=== PATIENT | female | born 1940 | race Caucasian/White ===

== ENCOUNTER 2024-08-18 21:19 | Inpatient (IN) | payer OTHER ==
[2024-08-18 23:10] LABS: BASO % 0.2 % (0-2.0); HEMOGLOBIN 15.5 GM/dL (10.7-15.3); LYMPH % 4.3 % (8-40); MCH 30.7 pg (25.7-33.7); MCHC 33.7 g/dl (32.0-36.0); MEAN PLT VOLUME 7.7 fl (7.5-11.1); MONO % 13.9 % (3.8-10.2); NEUT % 81.6 % (42.8-82.8); PLATELET COUNT 161 10^3/uL (134-434); RBC 5.05 M/mm3 (3.60-5.2); RDW 15.3 % (11.6-15.6); WHITE BLOOD COUNT 17.1 K/mm3 (4.0-10.0)
[2024-08-18 23:27] LABS: CHLORIDE 97 mmol/L (98-107)
[2024-08-18 23:28] LABS: SODIUM 132 mmol/L (136-145)
[2024-08-18 23:30] LABS: ALBUMIN 2.7 g/dl (3.4-5.0); BLOOD UREA NITROGEN 37.7 mg/dL (7-18); CALCIUM 9.7 mg/dL (8.5-10.1); CO2 30 mmol/L (21-32); GLUCOSE,RANDOM 101 mg/dL (74-106)
[2024-08-18 23:33] LABS: CREATININE 1.1 mg/dL (0.55-1.3)
[2024-08-18 23:35] LABS: TOT PROT 7.6 g/dl (6.4-8.2)
[2024-08-18 23:36] LABS: ALK PHOS 77 U/L (45-117)
[2024-08-18 23:49] LABS: ANION GAP 5 mmol/L (4-13); LACTIC ACID 4.2 mmol/L (0.4-2.0); POTASSIUM 9.6 mmol/L (3.5-5.1); SGOT/AST 132 U/L (15-37); SGPT/ALT 22 U/L (13-61)
[2024-08-18 23:59] LABS: BILIRUBIN,TOTAL < 0.1 mg/dL (0.2-1)
[2024-08-19] MEDS ORDERED: PIPERACILLIN/TAZOB 3.375 GM 3.375 GM/50 ML BAG IVPB ONE (00:34)
[2024-08-19] MEDS ORDERED: ACETAMINOPHEN INJECTION 100 ML ONE (00:39)
[2024-08-19] MEDS: SODIUM CHLORIDE 0.9% 500 ML INFUS.BAG IV ONE (00:43)
[2024-08-19] MEDS: ACETAMINOPHEN 1000 MG/100 ML BAG IVPB ONE (00:43)
[2024-08-19 00:44] LABS: EPI CELLS 4 /uL (0-25.1); HYALINE CASTS 0 /uL (0-3.1); URINE APPEARANCE CLOUDY; URINE BACTERIA 3990 /uL (0-1359); URINE BILIRUBIN NEGATIVE (NEGATIVE); URINE COLOR YELLOW; URINE GLUCOSE (UA) NEGATIVE (NEGATIVE); URINE KETONE NEGATIVE (NEGATIVE); URINE LEUK ESTERASE TRACE (NEGATIVE); URINE NITRITE NEGATIVE (NEGATIVE); URINE PROTEIN NEGATIVE (NEGATIVE); URINE RBC 2 /uL (0-23.9); URINE WBC 37 /uL (0-25.8)
[2024-08-19] MEDS: PIPERACILLIN/TAZOB 3.375 GM 3.375 GM in DEXTROSE 5%-WATER - 50 ML IVPB ONE (00:45)
[2024-08-19] MEDS ORDERED: VANCOMYCIN/WATER 1250 MG 1,250 MG/250 ML BAG IVPB ONE (01:57)
[2024-08-19] MEDS: VANCOMYCIN/WATER 1250 MG 1,250 MG/250 ML BAG IVPB ONE (01:58)
[2024-08-19] MEDS: LACTATED RINGERS SOLUTION 1000 ML INFUS.BAG IV ONE (02:31)
[2024-08-19 03:24] LABS: INR 1.2 (0.83-1.09); PROTHROMBIN TIME (PATIENT) 13.2 SEC (9.7-13.0)
[2024-08-19 03:27] LABS: ACTIVATED PTT 27.8 SECONDS (25.2-36.5)
[2024-08-19 03:29] LABS: POTASSIUM 3.6 mmol/L (3.5-5.1)
[2024-08-19 03:32] LABS: BLOOD UREA NITROGEN 36.6 mg/dL (7-18); CALCIUM 8.5 mg/dL (8.5-10.1)
[2024-08-19 03:33] LABS: ALBUMIN 2.1 g/dl (3.4-5.0)
[2024-08-19 03:35] LABS: CREATININE 0.9 mg/dL (0.55-1.3)
[2024-08-19 03:37] LABS: BILIRUBIN,TOTAL 0.5 mg/dL (0.2-1)
[2024-08-19 03:47] LABS: LACTIC ACID 3.2 mmol/L (0.4-2.0); TOT PROT 4.6 g/dl (6.4-8.2)
[2024-08-19 06:28] LABS: LACTIC ACID 2.6 mmol/L (0.4-2.0)
[2024-08-19] MEDS ORDERED: DOCUSATE SODIUM 100 MG CAPSULE (FP) PO PRN (07:54)
[2024-08-19 09:34] LABS: LACTIC ACID 2.7 mmol/L (0.4-2.0)
[2024-08-19 10:39] LABS: HEMOGLOBIN 14.5 GM/dL (10.7-15.3); MCH 30.2 pg (25.7-33.7); MEAN CELL VOLUME 91.4 fl (80-96); MEAN PLT VOLUME 7.8 fl (7.5-11.1); PLATELET COUNT 139 10^3/uL (134-434); RBC 4.81 M/mm3 (3.60-5.2); RDW 15.1 % (11.6-15.6); WHITE BLOOD COUNT 23.8 K/mm3 (4.0-10.0)
[2024-08-19] MEDS: D5-NS + 20 MEQ KCL - 20 MEQ/1,000 ML INFUS.BAG IV SCH (10:50)
[2024-08-19] MEDS: PIPERACILLIN/TAZOB 3.375 GM 50 ML IVPB SCH ×2 (10:50→18:06)
[2024-08-19 10:55] LABS: POTASSIUM 3.3 mmol/L (3.5-5.1)
[2024-08-19 10:58] LABS: BLOOD UREA NITROGEN 32.6 mg/dL (7-18); CALCIUM 8.8 mg/dL (8.5-10.1)
[2024-08-19] MEDS ORDERED: HEPARIN NA (PORCINE) 5,000 UNITS/ML 1ML VIAL IVPUSH PRN ×2 (11:50)
[2024-08-19 12:16] LABS: ANISOCYTOSIS 0; HELMET CELLS 0; HOWELL-JOLLY BODIES 0; MACROCYTOSIS 0; OVALOCYTE 0; ROULEAU 0; SICKELED CELLS 0; TARGET CELLS 0; TEAR DROP CELLS 0; TOXIC GRANULATION 0
[2024-08-19 13:00] LABS: LACTIC ACID 2.6 mmol/L (0.4-2.0)
[2024-08-19 13:18] LABS: INR 1.21 (0.83-1.09); PROTHROMBIN TIME (PATIENT) 13.3 SEC (9.7-13.0)
[2024-08-19 13:21] LABS: ACTIVATED PTT 30.1 SECONDS (25.2-36.5)
[2024-08-19] MEDS: HEPARIN NA (PORCINE) 5,000 UNITS/ML 1ML VIAL IVPUSH ONE (14:26)
[2024-08-19] MEDS: HEPARIN SOD,PORK IN 0.45% NACL 25,000 UNIT/500 ML INFUS.BAG IVPB SCH (14:26)
[2024-08-19] MEDS: POTASSIUM CHLORIDE ORAL LIQUID 20 MEQ/15 ML PO ONE (14:40)
[2024-08-19] MEDS: VANCOMYCIN/WATER FOR INJ (PEG) 750 MG/150 ML BAG IVPB SCH ×2 (14:40→15:26)
[2024-08-19] MEDS: PIPERACILLIN/TAZOB 3.375 GM 3.375 GM in DEXTROSE 5%-WATER - 50 ML IVPB SCH (15:25)
[2024-08-19 17:17] LABS: LACTIC ACID 2.1 mmol/L (0.4-2.0)
[2024-08-20 09:41] LABS: BASO % 0.1 % (0-2.0); EOS % 0.1 % (0-4.5); HEMATOCRIT 34.8 % (32.4-45.2); HEMOGLOBIN 11.5 GM/dL (10.7-15.3); LYMPH % 5.1 % (8-40); MCH 30.5 pg (25.7-33.7); MCHC 33.2 g/dl (32.0-36.0); MEAN CELL VOLUME 92.1 fl (80-96); MEAN PLT VOLUME 7.6 fl (7.5-11.1); MONO % 16.1 % (3.8-10.2); NEUT % 78.6 % (42.8-82.8); PLATELET COUNT 110 10^3/uL (134-434); RBC 3.78 M/mm3 (3.60-5.2); RDW 14.9 % (11.6-15.6); WHITE BLOOD COUNT 17.7 K/mm3 (4.0-10.0)
[2024-08-20 09:44] LABS: INR 1.18 (0.83-1.09)
[2024-08-20 09:46] LABS: ACTIVATED PTT 66.3 SECONDS (25.2-36.5)
[2024-08-20 09:53] LABS: POTASSIUM 3.5 mmol/L (3.5-5.1)
[2024-08-20 09:59] LABS: CALCIUM 8.4 mg/dL (8.5-10.1)
[2024-08-20 10:00] LABS: BLOOD UREA NITROGEN 28.8 mg/dL (7-18)
[2024-08-20 10:03] LABS: CREATININE 0.7 mg/dL (0.55-1.3)
[2024-08-20 10:04] LABS: BILIRUBIN,TOTAL 0.4 mg/dL (0.2-1); TOT PROT 4.6 g/dl (6.4-8.2)
[2024-08-21 10:24] LABS: HEMATOCRIT 34.7 % (32.4-45.2); HEMOGLOBIN 11.3 GM/dL (10.7-15.3); MCH 30.2 pg (25.7-33.7); MCHC 32.6 g/dl (32.0-36.0); MEAN CELL VOLUME 92.6 fl (80-96); MEAN PLT VOLUME 7.4 fl (7.5-11.1); PLATELET COUNT 121 10^3/uL (134-434); RBC 3.75 M/mm3 (3.60-5.2); RDW 15.5 % (11.6-15.6); WHITE BLOOD COUNT 11.8 K/mm3 (4.0-10.0)
[2024-08-21] MEDS: VANCOMYCIN HCL 125 MG CAPSULE (RESTRICTED TO ID ONLY) PO SCH (12:24)
[2024-08-21] MEDS: BANATROL PLUS POWDER PACKET PO SCH (14:02)
[2024-08-21 14:51] VITALS: BMI 16.3
[2024-08-21] MEDS: VANCOMYCIN ORAL SOLUTION 125 MG/2.5 ML PO SCH (17:15)
[2024-08-22] MEDS: PANTOPRAZOLE SODIUM 40 MG VIAL IVPUSH SCH (09:18)
[2024-08-22 10:37] LABS: HEMATOCRIT 33.5 % (32.4-45.2); HEMOGLOBIN 11.5 GM/dL (10.7-15.3); MCHC 34.2 g/dl (32.0-36.0); MEAN CELL VOLUME 90.5 fl (80-96); PLATELET COUNT 137 10^3/uL (134-434); RDW 15.4 % (11.6-15.6); WHITE BLOOD COUNT 8.5 K/mm3 (4.0-10.0)
[2024-08-22 10:54] LABS: POTASSIUM 3.1 mmol/L (3.5-5.1)
[2024-08-22 11:00] LABS: CALCIUM 8.4 mg/dL (8.5-10.1)
[2024-08-22 11:01] LABS: BLOOD UREA NITROGEN 10.8 mg/dL (7-18)
[2024-08-22 11:03] LABS: CREATININE 0.5 mg/dL (0.55-1.3)
[2024-08-22] MEDS: POLYETHYLENE GLYCOL (HEALTHYLAX) 3350 17 GM PACKET PO SCH (13:58)
[2024-08-22 16:17] LABS: BASO % 0.3 % (0-2.0); EOS % 1.6 % (0-4.5); HEMOGLOBIN 11.1 GM/dL (10.7-15.3); LYMPH % 13.4 % (8-40); MCH 30.6 pg (25.7-33.7); MCHC 33.6 g/dl (32.0-36.0); MEAN PLT VOLUME 6.8 fl (7.5-11.1); NEUT % 65.7 % (42.8-82.8); PLATELET COUNT 141 10^3/uL (134-434); RBC 3.62 M/mm3 (3.60-5.2); RDW 15.3 % (11.6-15.6); WHITE BLOOD COUNT 8.9 K/mm3 (4.0-10.0)
[2024-08-23 10:07] LABS: HEMATOCRIT 30.3 % (32.4-45.2); HEMOGLOBIN 10.3 GM/dL (10.7-15.3); MCH 30.9 pg (25.7-33.7); MCHC 33.9 g/dl (32.0-36.0); MEAN CELL VOLUME 91.2 fl (80-96); MEAN PLT VOLUME 6.6 fl (7.5-11.1); PLATELET COUNT 138 10^3/uL (134-434); RBC 3.32 M/mm3 (3.60-5.2); WHITE BLOOD COUNT 9.2 K/mm3 (4.0-10.0)
[2024-08-23 10:18] LABS: CHLORIDE 109 mmol/L (98-107); SODIUM 144 mmol/L (136-145)
[2024-08-23 10:21] LABS: POTASSIUM 2.9 mmol/L (3.5-5.1)
[2024-08-23 10:22] LABS: CALCIUM 8.2 mg/dL (8.5-10.1); GLUCOSE,RANDOM 84 mg/dL (74-106)
[2024-08-23 10:24] LABS: ANION GAP 4 mmol/L (4-13); CO2 30 mmol/L (21-32)
[2024-08-23 10:25] LABS: CREATININE 0.5 mg/dL (0.55-1.3); SGOT/AST 28 U/L (15-37); SGPT/ALT 16 U/L (13-61)
[2024-08-23 10:27] LABS: BILIRUBIN,TOTAL 0.6 mg/dL (0.2-1); TOT PROT 4.6 g/dl (6.4-8.2)
[2024-08-23 10:28] LABS: ALK PHOS 59 U/L (45-117)
[2024-08-23] MEDS: KCL 10 MEQ IVPB 10 MEQ/100 ML INFUS.BAG IVPB SCH ×2 (12:39→22:54)
[2024-08-23] MEDS: POTASSIUM CHLORIDE ORAL LIQUID 20 MEQ/15 ML PO SCH (22:53)
[2024-08-23] MEDS: POTASSIUM CHLORIDE 10 MEQ in AMINO ACIDS 4.25%/D5W 1,000 ML IV SCH (23:51)
[2024-08-24 10:08] LABS: HEMATOCRIT 31.8 % (32.4-45.2); HEMOGLOBIN 10.8 GM/dL (10.7-15.3); MCH 30.7 pg (25.7-33.7); MCHC 33.9 g/dl (32.0-36.0); MEAN CELL VOLUME 90.6 fl (80-96); MEAN PLT VOLUME 6.6 fl (7.5-11.1); PLATELET COUNT 170 10^3/uL (134-434); RBC 3.51 M/mm3 (3.60-5.2); RDW 14.7 % (11.6-15.6); WHITE BLOOD COUNT 10.5 K/mm3 (4.0-10.0)
[2024-08-24 10:22] LABS: POTASSIUM 3.2 mmol/L (3.5-5.1)
[2024-08-24 10:26] LABS: ALBUMIN 1.9 g/dl (3.4-5.0); BLOOD UREA NITROGEN 18.3 mg/dL (7-18); CALCIUM 8.2 mg/dL (8.5-10.1); MAGNESIUM 1.8 mg/dL (1.8-2.4)
[2024-08-24 10:29] LABS: CREATININE 0.8 mg/dL (0.55-1.3)
[2024-08-24 10:31] LABS: BILIRUBIN,TOTAL 0.6 mg/dL (0.2-1); PHOSPHOROUS 2.5 mg/dL (2.5-4.9); TOT PROT 4.7 g/dl (6.4-8.2)
[2024-08-24] MEDS: PEG 3350/NA SULF BICARB CL/KCL 4000 ML SOLN.RECON PO ONE (11:40)
[2024-08-24] MEDS: POTASSIUM CHLORIDE 20 MEQ in AMINO ACIDS 4.25%/D5W 2,000 ML IV SCH (14:28)
[2024-08-24 18:07] VITALS: RESP 18
[2024-08-24] MEDS: KCL 10 MEQ IVPB 10 MEQ/100 ML INFUS.BAG IVPB SCH (19:01)
[2024-08-25 07:14] VITALS: BP 124/83; PULSE 89; TEMP 97.5
[2024-08-25] MEDS: AMINO ACIDS 4.25%/D5W 1,000 ML IV SCH (07:44)
[2024-08-25] MEDS: PEG 3350/NA SULF BICARB CL/KCL 4000 ML SOLN.RECON PO ONE (07:52)
[2024-08-25 09:34] LABS: HEMOGLOBIN 11.1 GM/dL (10.7-15.3); MCH 31.1 pg (25.7-33.7); MCHC 34.7 g/dl (32.0-36.0); MEAN CELL VOLUME 89.6 fl (80-96); MEAN PLT VOLUME 6.5 fl (7.5-11.1); PLATELET COUNT 198 10^3/uL (134-434); RBC 3.57 M/mm3 (3.60-5.2); WHITE BLOOD COUNT 10.2 K/mm3 (4.0-10.0)
== END 2024-08-25 09:52 | DRG 871 ==
LOC: JER 21:19 → JERBED 08-19 04:52 → J5S 08-19 06:46
PROVIDERS: ADMIT Internal Medicine; ATTEND Family Medicine
DX: A41.9 Sepsis, unspecified organism (principal); E43 Unspecified severe protein-calorie malnutrition; J18.9 Pneumonia, unspecified organism; E87.20 Acidosis, unspecified; N39.0 Urinary tract infection, site not specified; Z68.1 Body mass index [BMI] 19.9 or less, adult; F03.90 Unspecified dementia, unspecified severity, without behavioral disturbance, psychotic disturbance, mood disturbance, and anxiety; M81.0 Age-related osteoporosis without current pathological fracture; I73.9 Peripheral vascular disease, unspecified; R33.9 Retention of urine, unspecified; K29.70 Gastritis, unspecified, without bleeding; D69.6 Thrombocytopenia, unspecified; J44.9 Chronic obstructive pulmonary disease, unspecified; K52.89 Other specified noninfective gastroenteritis and colitis; E87.6 Hypokalemia; K59.00 Constipation, unspecified; R31.9 Hematuria, unspecified
CPT/HCPCS: 0241U-QW; 36415; 70450-TC; 71045-TC-FY; 74174-TC; 74176-TC; 75635-TC; 80048; 80053; 81003; 82272; 82962; 83605; 83735; 84100; 84132; 84484; 85025; 85027; 85610; 85730; 86850; 86900; 86901; 87040; 87086; 87186; 93005; 93010; 97116-GP; 97162-GP; 99285-25; G0480; J0131; J1644; Q9967